=== PATIENT | female | born 1990 | race Caucasian/White ===

== ENCOUNTER 2017-08-01 04:59 | Emergency (ER) | payer OTHER ==
[~2017-08-01] VITALS: Ht 167.6 cm; Wt 90.8 kg
[~2017-08-01 04:59] MED LIST: NOHOMEMEDS; ZOFRAN ODT4 MG PO
[2017-08-01 05:54] LABS: HEMATOCRIT 39.6 % (36.0-46.0); MCH 30.1 PG (29.0-34.0); MCHC 34.1 G/DL (30.0-36.0); MCV 88.4 FL (83-99); MEAN PLAT.VOLUME 10.7 uM^3 (9.5-12.4); PLATELET COUNT 235 K/uL (156-360); RBC DIS.WIDTH-CV 14.1 % (11.8-14.6); RBC DIS.WIDTH-SD 45.6 % (39-53); RED BLOOD COUNT 4.48 M/uL (3.80-5.20); WHITE BLOOD COUNT 10.4 K/uL (4.1-10.2)
[2017-08-01 06:05] LABS: CHLORIDE 104 mEq/L (99-109); POTASSIUM 3.9 mEq/L (3.7-5.4); SODIUM 137 mEq/L (136-147)
[2017-08-01 06:07] LABS: GLUCOSE 116 mg/dL (70-99)
[2017-08-01 06:08] LABS: ANION GAP 15 MEQ/L (2-14)
[2017-08-01 06:09] LABS: TOTAL BILIRUBIN 0.6 mg/dL (0.0-1.0)
[2017-08-01 06:11] LABS: ALKALINE PHOSPHATASE 98 IU/L (3-129); GFR ESTIMATE (CALCULATED) > 59 mL/min/
[2017-08-01 06:12] LABS: UREA NITROGEN (BUN) 15 mg/dL (9-23)
[2017-08-01 06:14] LABS: LIPASE 19 U/L (1.0-51.0)
[2017-08-01 06:20] LABS: QUANTITATIVE HCG < 4.0 MIU/ML
[2017-08-01 07:09] LABS: ADD MIUA? YES; BILIRUBIN NEGATIVE; BLOOD NEGATIVE; COLOR YELLOW ((YELLOW)); GLUCOSE (STRIP) NEGATIVE; KETONES 5; LEUKOCYTES SMALL; NITRITE NEGATIVE; PROTEIN (STRIP) 30; SPECIFIC GRAVITY 1.038 (1.000-1.030); UROBILINOGEN 0.2 MG/DL (0.2-1.0)
[2017-08-01 07:15] LABS: BACTERIA RARE /HPF; EPITHELIAL CELLS 2+ /HPF; MUCUS 1+ /LPF; UCUL ADDED? YES
[2017-08-01] MEDS ORDERED: BENTYL10 MG PO (07:42)
[2017-08-01] MEDS ORDERED: ZOFRAN ODT4 MG PO (07:42)
[2017-08-01 07:52] VITALS: BP 109/76
== END 2017-08-01 07:53 | disposition home or self-care (01) ==
LOC: EME 04:59
PROVIDERS: Physician Assistant
DX: K52.9 Noninfective gastroenteritis and colitis, unspecified (principal); Z90.49 Acquired absence of other specified parts of digestive tract; F17.200 Nicotine dependence, unspecified, uncomplicated
CPT/HCPCS: 74177; 80053; 81003; 83690; 84702; 85027; 87086; 99281; 99285; J1885; J2405; J3010; J7030